=== PATIENT | female | born 2000 | race American Indian/Alaskan Native ===

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

== ENCOUNTER 2022-01-26 13:08 | Outpatient (CLI) | payer OTHER | END 2022-01-26 14:15 | disposition home or self-care (01) | LOC: PRENATAL 13:08 | PROVIDERS: ATTEND Obstetrics & Gynecology Maternal & Fetal Medicine | DX: O35.0XX0 Maternal care for (suspected) central nervous system malformation in fetus, not applicable or unspecified (principal); O35.3XX0 Maternal care for (suspected) damage to fetus from viral disease in mother, not applicable or unspecified; O28.1 Abnormal biochemical finding on antenatal screening of mother; Z3A.21 21 weeks gestation of pregnancy ==

== ENCOUNTER 2022-04-12 15:38 | Outpatient (CLI) | payer OTHER | END 2022-04-12 16:46 | disposition home or self-care (01) | LOC: PRENATAL 15:38 | PROVIDERS: ATTEND Obstetrics & Gynecology Maternal & Fetal Medicine | DX: O26.849 Uterine size-date discrepancy, unspecified trimester (principal); O28.1 Abnormal biochemical finding on antenatal screening of mother; O36.8199 Decreased fetal movements, unspecified trimester, other fetus; O36.5990 Maternal care for other known or suspected poor fetal growth, unspecified trimester, not applicable or unspecified; Z3A.32 32 weeks gestation of pregnancy ==